=== PATIENT | female | born 1995 | race Caucasian/White ===

== ENCOUNTER 2017-07-25 17:44 | Emergency (ER) | payer SELFPAY ==
[~2017-07-25] VITALS: Ht 154.9 cm; Wt 106.8 kg
[2017-07-25] MEDS ORDERED: ACETAMINOPHEN 325 MG TABLET PO ONE (19:15)
[2017-07-25 19:39] VITALS: BP 132/77
== END 2017-07-25 20:39 | disposition home or self-care (01) ==
LOC: EMS 17:48
DX: N63 Unspecified lump in breast (principal); N64.4 Mastodynia
CPT/HCPCS: 99282